=== PATIENT | female | born 1975 | race Hispanic/Latino ===

== ENCOUNTER 2019-08-04 10:24 | Emergency (ER) | payer SELFPAY ==
[2019-08-04 11:15] LABS: Basophils # (Auto) 0.1 K/mm3 (0.0-0.1); Basophils % (Auto) 0.8 % (0.0-1.8); Eosinophils # (Auto) 0.1 K/mm3 (0.0-0.4); Eosinophils % (Auto) 0.9 % (0.0-4.3); Hematocrit 41.6 % (30.3-42.9); Hemoglobin 14.7 gm/dl (10.1-14.3); Lymphocytes # (Auto) 3.6 K/mm3 (1.2-5.4); Mean Corpuscular HGB Conc 35 % (30-34); Mean Corpuscular Volume 94 fl (79-97); Monocytes # (Auto) 0.8 K/mm3 (0.0-0.8); Monocytes % (Auto) 7.5 % (0.0-7.3); Platelet Count 220 K/mm3 (140-440); Red Blood Count 4.44 M/mm3 (3.65-5.03); Red Cell Distribution Width 14.3 % (13.2-15.2)
[2019-08-04 11:29] LABS: BUN/Creatinine Ratio 13; Blood Urea Nitrogen 10 mg/dL (7-17); Calcium 9.1 mg/dL (8.4-10.2)
[2019-08-04 11:30] LABS: Hemolysis Index 2
[2019-08-04] MEDS ORDERED: POTASSIUM CHLORIDE ER 20 MEQ TAB PO ONE (15:54)
[2019-08-04] MEDS ORDERED: chlordiazePOXIDE 25 MG CAP PO PRN (15:56)
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
[2019-08-04] MEDS: LORazepam 2 MG TAB PO PRN ×2 (16:23→20:56)
[2019-08-04 16:42] LABS: Bilirubin,Urine MOD (Negative); Blood,Urine LG (Negative); Color,Urine Amber (Yellow); Mucus,Urine FEW /HPF
[2019-08-04 16:52] LABS: Benzodiazepines Screen,Urine PRESUMPTIVE NEGATIVE; Cannabinoid Screen,Urine PRESUMPTIVE NEGATIVE; Cocaine Screen,Urine PRESUMPTIVE NEGATIVE; Methadone Screen,Urine PRESUMPTIVE NEGATIVE; Opiate Screen,Urine PRESUMPTIVE NEGATIVE
[2019-08-04 17:00] LABS: Ictotest,Urine Negative (Negative)
[2019-08-04 17:11] LABS: Amphetamine Screen,Urine PRESUMPTIVE POSITIVE
[2019-08-04] MEDS ORDERED: ACETAMINOPHEN 325 MG TAB ONE (20:54)
[2019-08-04] MEDS ORDERED: SODIUM CHLORIDE 0.9% 1000 ML 1,000 ML IV ONE (23:29)
[2019-08-04] MEDS ORDERED: THIAMINE 100 MG, FOLIC ACID 1 MG, MULTIPLE VITAMIN INJ, ADULT 10 ML in SODIUM CHLORIDE ... IV ONE (23:29)
[2019-08-05] MEDS: LORazepam 2 MG TAB PO PRN ×3 (02:41→20:26)
[2019-08-05] MEDS ORDERED: IBUPROFEN 600 MG TAB PO ONE ×3 (08:36→18:32)
[2019-08-06] MEDS ORDERED: IBUPROFEN 600 MG TAB PO ONE ×3 (00:50→14:03)
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
[2019-08-06] MEDS ORDERED: CITALOPRAM HYDROBROMIDE 20 MG PO SCH (12:45)
[2019-08-06] MEDS ORDERED: NON-FORMULARY EACH (Oxcarbazepine [Trileptal] 600 MG) PO SCH (12:45)
[2019-08-06] MEDS ORDERED: ZIPRASIDONE MESYLATE 20 MG VIAL IM PRN (12:50)
[2019-08-06] MEDS: QUEtiapine 25 MG TAB PO SCH ×2 (14:00→21:57)
[2019-08-06] MEDS: OXcarbazepine 300 MG TAB PO SCH ×2 (14:08→21:58)
[2019-08-06] MEDS: CITALOPRAM 20 MG TAB PO SCH (14:08)
[2019-08-07] MEDS ORDERED: IBUPROFEN 600 MG TAB PO ONE ×2 (08:21)
[2019-08-07] MEDS: CITALOPRAM 20 MG TAB PO SCH (10:26)
[2019-08-07] MEDS: FOLIC ACID 1 MG TAB PO SCH (10:27)
[2019-08-07] MEDS: QUEtiapine 25 MG TAB PO SCH ×3 (10:27→22:11)
[2019-08-07] MEDS: OXcarbazepine 300 MG TAB PO SCH ×2 (10:27→22:11)
--- NOTE | 2019-08-07 12:16 | Progress Note ---
Subjective - Reason for Consult Consult date: 08/07/19 Reason for consult: suicidal ideation, hallucinations - Chief Complaint Chief complaint: The patient's medical record was reviewed and the patient's progress discussed with the nursing staff. During my interview with the patient today, she is sitting on side of the cot. She is a/o x 3. She makes good eye contact. Her affect is restricted. The patient states, "I'm not doing good. I keep hearing voices." She says the voices are "telling me to kill myself." The patient verbalizes being "depressed" and states, "I want to cut my wrist." She says she slept "good" and her appetite is "so-so." ROS: Constitutional: Negative for weight loss ENT: Negative for stridor Respiratory: Negative for cough or hemoptysis All other systems reviewed and are negative MENTAL STATUS General Appearance: Dressed appropriately Behavior: calm and cooperative, good eye contact Mood: "depressed" Affect: Restricted Thought Process: Goal directed Speech: Normal tone and pace Suicidal Ideation: Yes, with plan to cut her wrist Homicidal Ideation: Denies Hallucinations: Auditory Delusions: None elicited Insight and Judgment: Limited Memory/Cognition: Fair Diagnoses: Major Depressive Disorder, Severe, w/o Psychotic Features Plan Increase Seroquel 50mg po daily to improve depressive symptoms and decrease hallucinations Medical: Per primary Sitter: Defer to primary Disposition: The patient meets the requirement for acute hospitalization at this time. She may transfer to an acute psychiatric facility once medically cleared. The patient verbalizes understanding and agreement of treatment plan and medications. Will continue to follow until the patient is transferred or her condition improves. Please call with any questions or concerns. Thank you for this consult. Mental Status Exam - Vital signs Last Vital Signs Temp 97.9 F 08/07/19 07:52 Pulse 90 08/07/19 07:52 Resp 18 08/07/19 08:23 BP 128/83 08/07/19 07:52 Pulse Ox 96 08/07/19 08:00
[2019-08-07 15:10] LABS: HCG Qualitative,Urine Negative (Negative)
[2019-08-07] MEDS ORDERED: IPRATROPIUM/ALBUTEROL SULFATE 3 ML AMPUL.NEB IH ONE (16:09)
[2019-08-08] MEDS ORDERED: IBUPROFEN 600 MG TAB PO ONE (09:21)
[2019-08-08] MEDS: CITALOPRAM 20 MG TAB PO SCH (09:46)
[2019-08-08] MEDS: FOLIC ACID 1 MG TAB PO SCH (09:47)
[2019-08-08] MEDS: OXcarbazepine 300 MG TAB PO SCH ×2 (09:47→21:57)
[2019-08-08] MEDS: QUEtiapine 25 MG TAB PO SCH (10:00)
--- NOTE | 2019-08-08 13:04 | Progress Note ---
Subjective - Reason for Consult Consult date: 08/08/19 Reason for consult: suicidal ideation, depression - Chief Complaint Chief complaint: The patient's medical record was reviewed and the patient's progress discussed with the nursing staff. The nurse caring for the patient states the patient has expressed depression and current suicidal thoughts with her. During my interview with the patient today, she is sitting on side of the cot. She is a/o x 3. She makes good eye contact. Her affect is restricted. The patient states, "I'm doing about the same." She says she is "depressed." She says "I'm still suicidal. I have so many bad things going on in my life." She denies having a plan today. She verbalizes "hearing voices telling me to kill myself." She says she slept "alright." The patient says her appetite is "okay." ROS: Constitutional: Negative for weight loss ENT: Negative for stridor Respiratory: Negative for cough or hemoptysis All other systems reviewed and are negative MENTAL STATUS General Appearance: Dressed appropriately Behavior: calm and cooperative, good eye contact Mood: "depressed" Affect: Restricted Thought Process: Goal directed Speech: Normal tone and pace Suicidal Ideation: Yes Homicidal Ideation: Denies Hallucinations: Auditory Delusions: None elicited Insight and Judgment: Limited Memory/Cognition: Fair Diagnoses: Major Depressive Disorder, Severe, w/o Psychotic Features Plan Increase Seroquel 100mg po BID to improve depressive symptoms and decrease hallucinations Medical: Per primary Sitter: Defer to primary Disposition: The patient meets the requirement for acute hospitalization at this time. She may transfer to an acute psychiatric facility once medically cleared. The patient verbalizes understanding and agreement of treatment plan and medications. Will continue to follow until the patient is transferred or her condition improves. Please call with any questions or concerns. Thank you for this consult. Mental Status Exam - Vital signs Last Vital Signs Temp 97.6 F 08/08/19 07:34 Pulse 82 08/08/19 07:34 Resp 18 08/08/19 07:34 BP 128/93 08/08/19 07:34 Pulse Ox 96 08/08/19 07:34
[2019-08-08] MEDS ORDERED: IBUPROFEN 800 MG TAB ONE (20:15)
[2019-08-08] MEDS ORDERED: IBUPROFEN 800 MG TAB PO ONE (20:15)
[2019-08-08] MEDS: QUEtiapine 100 MG TAB PO SCH (21:55)
[2019-08-09 08:38] VITALS: BP 133/83
[2019-08-09] MEDS ORDERED: IBUPROFEN 400 MG TAB PO PRN (08:54)
[2019-08-09] MEDS: QUEtiapine 100 MG TAB PO SCH (09:30)
[2019-08-09] MEDS: CITALOPRAM 20 MG TAB PO SCH (09:31)
[2019-08-09] MEDS: FOLIC ACID 1 MG TAB PO SCH (09:31)
[2019-08-09] MEDS: OXcarbazepine 300 MG TAB PO SCH (10:17)
== END 2019-08-09 11:30 ==
LOC: EEVIPCON 10:24 → ED 10:24
DX: F31.9 Bipolar disorder, unspecified (principal); E87.6 Hypokalemia; F10.20 Alcohol dependence, uncomplicated; F17.200 Nicotine dependence, unspecified, uncomplicated; Z79.899 Other long term (current) drug therapy; Z88.2 Allergy status to sulfonamides
CPT/HCPCS: 36415; 80048; 80307; 81001; 81025; 84132; 85025; 96365; 96366; 99285; J3411; J7030; 80320; G0480